=== PATIENT | female | born 1975 | race Caucasian/White ===

== ENCOUNTER 2016-09-26 13:36 | Emergency (ER) | payer BC, MEDICAID ==
[2016-09-26 14:04] VITALS: BP 117/66
--- NOTE | 2016-09-26 14:12 | EDM.PDOC ---
ED HPI Trauma - General Chief Complaint: Upper Extremity Injury/Pain Stated Complaint: R SHOULDER PAIN Time Seen by Provider: 09/26/16 14:07 Source: Reports: Patient History Limitations: Reports: No limitations - History of Present Illness INITIAL COMMENTS - FREE TEXT/NARRATIVE: Pt turned the wrong way and felt something pop and thought the shoulder was dislocated. She was able to get it back into place and today she missed a step and she fell and her shoulder pain is much worse. Occurred When: just prior to arrival Occurred Where: home Method of Injury: fall Severity: moderate Pain/Injury Location: Reports: lower extremity, right Consciousness: Reports: no loss of consciousness Associated Symptoms: Reports: denies other symptoms Allergies/ADRs: Allergies carvedilol [From Coreg] Allergy (Verified 09/26/16 13:45) Rash dexamethasone [From Decadron] Allergy (Verified 09/26/16 13:45) Rash dexamethasone sod phosphate [From Decadron] Allergy (Verified 09/26/16 13:45) Rash latex Allergy (Verified 09/26/16 13:45) Itching metoclopramide HCl [From Reglan] Allergy (Verified 09/26/16 13:45) Other morphine Allergy (Verified 09/26/16 13:45) Itching prednisone Allergy (Verified 09/26/16 13:45) Rash Home Medications: Ambulatory Orders Digoxin 250 mcg PO DAILY 10/02/15 [Confirmed 09/26/16] Eszopiclone [Lunesta] 3 mg PO BEDTIME PRN 10/02/15 [Confirmed 09/26/16] Spironolactone 50 mg PO BID 02/15/16 [Confirmed 09/26/16] lamoTRIgine [Lamotrigine] 300 mg PO DAILY 02/15/16 [Confirmed 09/26/16] Ondansetron [Zofran ODT] 4 mg PO Q6H PRN #12 tab.dis 02/20/16 [Confirmed ] tiZANidine HCl [Zanaflex] 4 mg PO Q6H PRN 03/04/16 [Confirmed 09/26/16] Diltiazem [Dilacor XR] 180 mg PO DAILY 03/25/16 [Confirmed 09/26/16] Ibuprofen [Motrin] 600 mg PO Q6H PRN 03/25/16 [Confirmed 09/26/16] Naproxen Sodium [Aleve] 220 mg PO BID 03/25/16 [Confirmed 09/26/16] oxyCODONE ER [OxyCONTIN] 20 mg PO Q12HR 03/25/16 [Confirmed 09/26/16] oxyCODONE [Oxycodone HCl] 10 mg PO Q4H PRN 03/25/16 [Confirmed 09/26/16] Gabapentin [Neurontin] 600 tab PO TID 03/26/16 [Confirmed 09/26/16] ALPRAZolam [Xanax] 0.5 mg PO TID PRN 09/26/16 [Confirmed 09/26/16] Furosemide [Lasix] 10 mg PO DAILY 09/26/16 [Confirmed 09/26/16] Zaleplon [Sonata] 10 mg PO BEDTIME 09/26/16 [Confirmed 09/26/16] Past Medical History HEENT History: Reports: Allergic rhinitis, Sinusitis Cardiovascular History: Reports: Arrhythmia, Other (see below) Other Cardiovascular History: dialated cardiomyopathy, SVT Respiratory History: Reports: Other (see below) Other Respiratory History: RAD 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 History: Reports: GERD 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, Musculoskeletal History: Reports: Back pain, chronic, Other (see below) Other Musculoskeletal History: Degenerative disc disease, Right SI joint Neurological History: Reports: Concussion, Migraines Psychiatric History: Reports: Anxiety, Bipolar, Depression, Panic attack, Suicide attempt, Suicidal ideation Hematologic History: Reports: Anemia - Infectious Disease History Infectious Disease History: Reports: C-difficile - Past Surgical History Female Surgical History: Reports: Hysterectomy, Tubal ligation Social & Family History - Family History Family Medical History: Noncontributory Musculoskeletal: Reports: Back pain, chronic - Tobacco Use Smoking Status *Q: Never Smoker Second Hand Smoke Exposure: No - Caffeine Use Caffeine Use: Reports: Coffee Other Caffeine Use: every other week at work - Alcohol Use Days Per Week of Alcohol Use: 2 Number of Drinks Per Day: 8 Total Drinks Per Week: 16 - Recreational Drug Use Recreational Drug Use: No Drug Use in Last 12 Months: Yes Recreational Drug Type: Reports: Marijuana/Hashish Recreational Drug Use Frequency: Not Used In Over 6 Months Review of Systems - Review of Systems Review Of Systems: See Below Constitutional: Reports: no symptoms Eyes: Reports: no symptoms Ears: Reports: no symptoms Nose: Reports: no symptoms Mouth/Throat: Reports: no symptoms Respiratory: Reports: No Symptoms Cardiovascular: Reports: no symptoms GI/Abdominal: Reports: No symptoms Genitourinary: Reports: no symptoms Musculoskeletal: Reports: other ( severe pain the rt shoulder. ) Skin: Reports: no symptoms Trauma Exam - Physical Exam Exam: See Below Text/Narrative:: Pt arrived with severe pain in the rt shoulder after a fall today. She is able to use the arm. and has fair range of motion in the shoulder. Exam Limited By: No limitations General Appearance: Reports: alert, anxious, moderate distress Head: Reports: atraumatic Eyes: bilateral eye: EOMI, normal inspection, PERRL Ears: Reports: normal TMs Nose: Reports: normal inspection Throat/Mouth: Reports: Normal inspection Neck: Reports: non-tender Respiratory Exam: Reports: no respiratory distress Extremities: Reports: other ( rt shoulder is tendr anteriorly and in the back of the shoulder. She has tenderness over the deltoid insertion. ) Neurologic: Reports: alert Skin: Reports: Normal color Course - Vital Signs Last Recorded V/S: Last Vital Signs Temp 36.9 C 09/26/16 14:02 Pulse 114 H 09/26/16 14:02 Resp 16 09/26/16 14:02 BP 117/66 09/26/16 14:02 Pulse Ox 96 09/26/16 14:02 - Orders/Labs/Meds Orders: Active Orders 24 hr Category Date Time Status Shoulder Comp Rt [CR] Stat Exams 09/26/16 14:06 Taken HYDROmorphone [Dilaudid] Med 09/26/16 14:41 Once 0.5 mg IM ONETIME ONE Medication Orders Hydromorphone HCl (Dilaudid) 0.5 mg IM ONETIME ONE Stop: 09/26/16 14:42 Meds: Medications Generic Name Dose Route Start Last Admin Trade Name Freq PRN Reason Stop Dose Admin Hydromorphone HCl 0.5 mg 09/26/16 14:41 Dilaudid IM 09/26/16 14:42 ONETIME ONE - Re-Assessments/Exams Free Text/Narrative Re-Assessment/Exam: 09/26/16 14:42 xray arrived with pain in rt shoulder. xray was obtained which did not reveal a fracture. Departure - Departure Time of Disposition: 14:43 Disposition: Home, Self-Care 01 Clinical Impression: Contusion of right shoulder Forms: ED Department Discharge Care Plan Goals: ice to the rt shoulder for the next 72 hours, after that do moist warm heat, do regular range of motion to prevent a frozen shoulder. Use a sling for comfort. - My Orders Last 24 Hours: My Active Orders 09/26/16 14:06 Shoulder Comp Rt [CR] Stat 09/26/16 14:41 HYDROmorphone [Dilaudid] 0.5 mg IM ONETIME ONE - Assessment/Plan Last 24 Hours: My Active Orders 09/26/16 14:06 Shoulder Comp Rt [CR] Stat 09/26/16 14:41 HYDROmorphone [Dilaudid] 0.5 mg IM ONETIME ONE
[2016-09-26] MEDS ORDERED: HYDROmorphone 0.5 MG/0.5 ML Syringe IM ONE (14:41)
--- NOTE | 2016-09-28 09:30 | CR ---
Shoulder Comp Rt HISTORY: Pain COMPARISON: None FINDINGS: No fracture or dislocation. No bony destructive process.
== END 2016-09-26 15:09 | disposition home or self-care (01) ==
LOC: JP.ED 13:36
DX: S40.011A Contusion of right shoulder, initial encounter (principal); K21.9 Gastro-esophageal reflux disease without esophagitis; F41.9 Anxiety disorder, unspecified; F32.9 Major depressive disorder, single episode, unspecified; Z86.2 Personal history of diseases of the blood and blood-forming organs and certain disorders involving the immune mechanism; Z88.5 Allergy status to narcotic agent; Z88.8 Allergy status to other drugs, medicaments and biological substances; Z90.710 Acquired absence of both cervix and uterus; Z98.51 Tubal ligation status; Z91.040 Latex allergy status; W19.XXXA Unspecified fall, initial encounter; Y92.009 Unspecified place in unspecified non-institutional (private) residence as the place of occurrence of the external cause
CPT/HCPCS: 73030; 96372; 99284; J1170

== ENCOUNTER 2016-10-17 17:38 | Emergency (ER) | payer BC, MEDICAID ==
--- NOTE | 2016-10-17 17:58 | EDM.PDOC ---
ED HPI GENERAL MEDICAL PROBLEM - General Chief Complaint: Back Pain or Injury Stated Complaint: SEVERE BACK PAIN Time Seen by Provider: 10/17/16 17:52 Source of Information: Reports: Patient, Family History Limitations: Reports: No Limitations - History of Present Illness INITIAL COMMENTS - FREE TEXT/NARRATIVE: Pt with chronic back pain. With increasing pain over the last 3 days. Has been taking all of her prescribed meds. Feels like pain is due to spasm. Pain is in low back to left leg. Left leg went out and she fell about a week ago. Is waiting for approval for surgery. present for interview. Onset: Gradual Onset Date: 10/14/16 Duration: Constant Location: Reports: Back Quality: Reports: Ache, Sharp Severity: Severe (rates pain a 9) Improves with: Reports: Medication Worsens with: Reports: Movement Associated Symptoms: Reports: Nausea/Vomiting 10 Pain Score (Numeric/FACES): 8 - Related Data Allergies Allergy/AdvReac Type Severity Reaction Status Date / Time carvedilol [From Coreg] Allergy Rash Verified 09/26/16 13:45 dexamethasone [From Decadron] Allergy Rash Verified 09/26/16 13:45 dexamethasone sod phosphate Allergy Rash Verified 09/26/16 13:45 [From Decadron] latex Allergy Itching Verified 09/26/16 13:45 metoclopramide HCl Allergy Other Verified 09/26/16 13:45 [From Reglan] morphine Allergy Itching Verified 09/26/16 13:45 prednisone Allergy Rash Verified 09/26/16 13:45 Home Meds: Home Meds Digoxin 250 mcg PO DAILY 10/02/15 [History] Eszopiclone [Lunesta] 3 mg PO BEDTIME PRN 10/02/15 [History] Spironolactone 50 mg PO BID 02/15/16 [History] lamoTRIgine [Lamotrigine] 300 mg PO DAILY 02/15/16 [History] Ondansetron [Zofran ODT] 4 mg PO Q6H PRN #12 tab.dis 02/20/16 [Rx] tiZANidine HCl [Zanaflex] 4 mg PO Q6H PRN 03/04/16 [History] Diltiazem [Dilacor XR] 180 mg PO DAILY 03/25/16 [History] Ibuprofen [Motrin] 600 mg PO Q6H PRN 03/25/16 [History] Naproxen Sodium [Aleve] 220 mg PO BID 03/25/16 [History] oxyCODONE ER [OxyCONTIN] 20 mg PO Q12HR 03/25/16 [History] oxyCODONE [Oxycodone HCl] 10 mg PO Q4H PRN 03/25/16 [History] Gabapentin [Neurontin] 600 tab PO TID 03/26/16 [History] ALPRAZolam [Xanax] 0.5 mg PO TID PRN 09/26/16 [History] Furosemide [Lasix] 10 mg PO DAILY 09/26/16 [History] Zaleplon [Sonata] 10 mg PO BEDTIME 09/26/16 [History] Past Medical History HEENT History: Reports: Allergic Rhinitis, Sinusitis Cardiovascular History: Reports: Arrhythmia, Other (See Below) Other Cardiovascular History: dialated cardiomyopathy, SVT Respiratory History: Reports: Other (See Below) Other Respiratory History: RAD 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 History: Reports: GERD 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, Musculoskeletal History: Reports: Back Pain, Chronic, Other (See Below) Other Musculoskeletal History: Degenerative disc disease, Right SI joint Neurological History: Reports: Concussion, Migraines Psychiatric History: Reports: Anxiety, Bipolar, Depression, Panic Attack, Suicide Attempt, Suicidal Ideation Hematologic History: Reports: Anemia - Infectious Disease History Infectious Disease History: Reports: C-Difficile - Past Surgical History Female Surgical History: Reports: Hysterectomy, Tubal Ligation Social & Family History - Family History Family Medical History: Noncontributory Musculoskeletal: Reports: Back pain, Chronic - Tobacco Use Smoking Status *Q: Never Smoker Second Hand Smoke Exposure: No - Caffeine Use Caffeine Use: Reports: Coffee Other Caffeine Use: every other week at work - Alcohol Use Days Per Week of Alcohol Use: 2 Number of Drinks Per Day: 8 Total Drinks Per Week: 16 - Recreational Drug Use Recreational Drug Use: No Drug Use in Last 12 Months: Yes Recreational Drug Type: Reports: Marijuana/Hashish Recreational Drug Use Frequency: Not Used In Over 6 Months ED ROS GENERAL - Review of Systems Review Of Systems: See Below Constitutional: Reports: No Symptoms GI/Abdominal: Reports: Nausea Musculoskeletal: Reports: Back Pain Skin: Reports: No Symptoms ED EXAM,LOWER BACK PAIN/INJURY - Physical Exam Exam: See Below Exam Limited By: No Limitations General Appearance: Severe Distress (pt crying and writhing in pain for much of her visit tonight) Respiratory/Chest: No Respiratory Distress, Lungs Clear, Normal Breath Sounds, No Accessory Muscle Use, Chest Non-Tender Cardiovascular: Normal Peripheral Pulses, Regular Rate, Rhythm, No Edema, No Gallop, No JVD, No Murmur, No Rub Back Exam: Normal Inspection, Full Range of Motion, NT Neurological: Alert, Normal Mood/Affect, Normal Dorsiflexion, CN II-XII Intact, Normal Plantar Flexion, Normal Gait, Normal Reflexes, No Motor/Sensory Deficits , Oriented x 3 Psychiatric: Anxious, Tearful Skin Exam: Warm, Dry, Intact, Normal Color, No Rash Course - Vital Signs Last Recorded V/S: Last Vital Signs Temp 99.1 F 10/17/16 18:13 Pulse 111 H 10/17/16 18:49 Resp 18 10/17/16 18:49 BP 120/59 L 10/17/16 18:49 Pulse Ox 99 10/17/16 18:49 - Orders/Labs/Meds Meds: Medications Discontinued Medications Generic Name Dose Route Start Last Admin Trade Name Jelaniq PRN Reason Stop Dose Admin Carisoprodol 350 mg 10/17/16 19:53 Soma PO 10/17/16 19:54 ONETIME ONE Diazepam 5 mg 10/17/16 19:09 10/17/16 19:19 Valium IVPUSH 10/17/16 19:10 5 mg ONETIME ONE Administration Diphenhydramine HCl 25 mg 10/17/16 18:01 10/17/16 18:04 Benadryl IVPUSH 10/17/16 18:02 25 mg ONETIME ONE Administration Hydromorphone HCl 1 mg 10/17/16 17:59 10/17/16 18:05 Dilaudid IVPUSH 10/17/16 18:00 1 mg ONETIME ONE Administration Hydromorphone HCl 1 mg 10/17/16 18:37 10/17/16 18:40 Dilaudid IVPUSH 10/17/16 18:38 1 mg ONETIME ONE Administration Hydroxyzine HCl 50 mg 10/17/16 19:03 10/17/16 19:25 Vistaril IM 10/17/16 19:04 50 mg ONETIME ONE Administration Ketorolac Tromethamine 30 mg 10/17/16 18:44 10/17/16 18:55 Toradol IVPUSH 10/17/16 18:45 30 mg ONETIME ONE Administration Ondansetron HCl 4 mg 10/17/16 18:00 10/17/16 18:05 Zofran IVPUSH 10/17/16 18:01 4 mg ONETIME ONE Administration Departure - Departure Time of Disposition: 19:57 Disposition: Home, Self-Care 01 Condition: good Clinical Impression: Chronic back pain Qualifiers: Back pain location: low back pain Back pain laterality: bilateral Sciatica presence: without sciatica Qualified Code(s): M54.5 - Low back pain; G89.29 - Other chronic pain - Discharge Information Instructions: Back Pain, Adult, [place], Pain Medicine Instructions, Easy- to-Read Referrals: Frank Renee MD [Primary Care Provider] - Forms: ED Department Discharge Additional Instructions: Pt with intractable back pain. Request we call the [facility] to see if we can move up her appointment with her surgeon. We will attempt to reach them for an appointment next week. Multiple medications used to calm her pain tonight in ER. Soma po given prior to discharge per her request. Discussed resuming her pain management plan as previous. Continue supportive measures such as ice, heat, stretching, biofeedback. Followup as needed. Pt and spouse voice understanding of plan of care. - Problem List & Annotations (1) Chronic back pain SNOMED Code(s): 594620825 Code(s): M54.9 - DORSALGIA, UNSPECIFIED; G89.29 - OTHER CHRONIC PAIN Status : Acute Priority: Medium Current Visit: Yes Qualifiers: Back pain location: low back pain Back pain laterality: bilateral Sciatica presence: without sciatica Qualified Code(s): M54.5 - Low back pain; G89.29 - Other chronic pain
[2016-10-17] MEDS ORDERED: HYDROmorphone 1 MG/ML Syringe IVPUSH ONE ×2 (17:59→18:37)
[2016-10-17] MEDS ORDERED: Ondansetron 4 MG/2 ML SDV IVPUSH ONE (18:00)
[2016-10-17] MEDS ORDERED: diphenhydrAMINE 50 MG/ML SDV IVPUSH ONE (18:01)
[2016-10-17] MEDS ORDERED: Ketorolac 30 MG/ML SDV IVPUSH ONE (18:44)
[2016-10-17 18:50] VITALS: BP 120/59
[2016-10-17] MEDS ORDERED: hydrOXYzine HCl 50 MG/ML SDV IM ONE (19:03)
== END 2016-10-17 20:15 | disposition home or self-care (01) ==
LOC: JP.ED 17:38
DX: G89.29 Other chronic pain (principal); M54.5 Low back pain; K21.9 Gastro-esophageal reflux disease without esophagitis; F41.9 Anxiety disorder, unspecified; F32.9 Major depressive disorder, single episode, unspecified; Z90.710 Acquired absence of both cervix and uterus; Z88.8 Allergy status to other drugs, medicaments and biological substances; Z91.040 Latex allergy status; Z88.5 Allergy status to narcotic agent; Z79.899 Other long term (current) drug therapy; Z98.51 Tubal ligation status
CPT/HCPCS: 96372; 96374; 96375; 96376; 99283; 99284; A9270; J1170; J1200; J1885; J2405; J3360; J3410

== ENCOUNTER 2016-10-19 09:55 | Emergency (ER) | payer MEDICAID ==
[2016-10-19 10:09] VITALS: BP 112/68
[2016-10-19] MEDS ORDERED: HYDROmorphone 1 MG/ML Syringe IVPUSH ONE (10:18)
--- NOTE | 2016-10-19 10:25 | EDM.PDOC ---
ED HPI GENERAL MEDICAL PROBLEM - General Chief Complaint: Back Pain or Injury Stated Complaint: BACK PAIN Time Seen by Provider: 10/19/16 10:18 Source of Information: Reports: Patient, Family History Limitations: Reports: No Limitations - History of Present Illness INITIAL COMMENTS - FREE TEXT/NARRATIVE: pt arrived with severe lower back pin which is radiating down both legs. Randee her diskogram she had 2 tears which he was to have surgery for. Onset: Gradual Duration: Getting Worse Location: Reports: Back Quality: Reports: Other (pt is describing muscle spasm. ) Severity: Severe Lower Back Pain Score (Numeric/FACES): 10 - Related Data Allergies Allergy/AdvReac Type Severity Reaction Status Date / Time carvedilol [From Coreg] Allergy Rash Verified 09/26/16 13:45 dexamethasone [From Decadron] Allergy Rash Verified 09/26/16 13:45 dexamethasone sod phosphate Allergy Rash Verified 09/26/16 13:45 [From Decadron] latex Allergy Itching Verified 09/26/16 13:45 metoclopramide HCl Allergy Other Verified 09/26/16 13:45 [From Reglan] morphine Allergy Itching Verified 09/26/16 13:45 prednisone Allergy Rash Verified 09/26/16 13:45 Home Meds: Home Meds Digoxin 250 mcg PO DAILY 10/02/15 [History] Eszopiclone [Lunesta] 3 mg PO BEDTIME PRN 10/02/15 [History] Spironolactone 50 mg PO BID 02/15/16 [History] lamoTRIgine [Lamotrigine] 300 mg PO DAILY 02/15/16 [History] Ondansetron [Zofran ODT] 4 mg PO Q6H PRN #12 tab.dis 02/20/16 [Rx] tiZANidine HCl [Zanaflex] 4 mg PO Q6H PRN 03/04/16 [History] Diltiazem [Dilacor XR] 180 mg PO DAILY 03/25/16 [History] Ibuprofen [Motrin] 600 mg PO Q6H PRN 03/25/16 [History] Naproxen Sodium [Aleve] 220 mg PO BID 03/25/16 [History] oxyCODONE ER [OxyCONTIN] 20 mg PO Q12HR 03/25/16 [History] oxyCODONE [Oxycodone HCl] 10 mg PO Q4H PRN 03/25/16 [History] Gabapentin [Neurontin] 600 tab PO TID 03/26/16 [History] ALPRAZolam [Xanax] 0.5 mg PO TID PRN 09/26/16 [History] Furosemide [Lasix] 10 mg PO DAILY 09/26/16 [History] Zaleplon [Sonata] 10 mg PO BEDTIME 09/26/16 [History] Past Medical History HEENT History: Reports: Allergic Rhinitis, Sinusitis Cardiovascular History: Reports: Arrhythmia, Other (See Below) Other Cardiovascular History: dialated cardiomyopathy, SVT Respiratory History: Reports: Other (See Below) Other Respiratory History: RAD 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 History: Reports: GERD 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, Musculoskeletal History: Reports: Back Pain, Chronic, Other (See Below) Other Musculoskeletal History: Degenerative disc disease, Right SI joint Neurological History: Reports: Concussion, Migraines Psychiatric History: Reports: Anxiety, Bipolar, Depression, Panic Attack, Suicide Attempt, Suicidal Ideation Hematologic History: Reports: Anemia - Infectious Disease History Infectious Disease History: Reports: C-Difficile - Past Surgical History Female Surgical History: Reports: Hysterectomy, Tubal Ligation Social & Family History - Family History Family Medical History: Noncontributory Musculoskeletal: Reports: Back pain, Chronic - Tobacco Use Smoking Status *Q: Unknown Ever Smoked Second Hand Smoke Exposure: No - Caffeine Use Caffeine Use: Reports: Coffee, Soda Other Caffeine Use: every other week at work - Alcohol Use Days Per Week of Alcohol Use: 2 Number of Drinks Per Day: 8 Total Drinks Per Week: 16 - Recreational Drug Use Recreational Drug Use: No Drug Use in Last 12 Months: Yes Recreational Drug Type: Reports: Marijuana/Hashish Recreational Drug Use Frequency: Not Used In Over 6 Months ED ROS GENERAL - Review of Systems Review Of Systems: See Below Constitutional: Reports: No Symptoms HEENT: Reports: No Symptoms Respiratory: Reports: No Symptoms Cardiovascular: Reports: No Symptoms Endocrine: Reports: No Symptoms GI/Abdominal: Reports: No Symptoms : Reports: No Symptoms Musculoskeletal: Reports: Back Pain, Other (pt has severe lower back pain and pain going down both legs. She has not gotten any relief with her usual meds. She got fentyl 200mg in the ambulance with no relief. She has been given dilaudid 1mg iv, with no relief. ) Skin: Reports: No Symptoms Neurological: Reports: No Symptoms Psychiatric: Reports: Agitation, Anxiety, Other ( crying and not able to relax. ) ED EXAM,LOWER BACK PAIN/INJURY - Physical Exam Exam: See Below Text/Narrative:: Pt arrived with severe low back pain and pain going down both legs. Exam Limited By: No Limitations General Appearance: Alert, Severe Distress Ears: Normal External Exam Nose: Normal Inspection Throat/Mouth: Normal Inspection Head: Atraumatic Neck: Normal Inspection Respiratory/Chest: No Respiratory Distress Cardiovascular: Normal Peripheral Pulses GI/Abdominal: Soft, Non-Tender (Female) Exam: Deferred Rectal (Female) Exam: Deferred Back Exam: Other ( Pt has yenderness accross the lower back and she feels she is having pain going down both legs. ) Extremities: Normal Inspection Neurological: Alert Psychiatric: Anxious, Other (pt is very agitated. ) Course - Vital Signs Last Recorded V/S: Last Vital Signs Temp 37.9 C 10/19/16 10:08 Pulse 112 H 10/19/16 10:08 Resp 22 H 10/19/16 10:08 BP 112/68 10/19/16 10:08 Pulse Ox 99 10/19/16 10:08 - Orders/Labs/Meds Meds: Medications Discontinued Medications Generic Name Dose Route Start Last Admin Trade Name Gucci PRN Reason Stop Dose Admin Diazepam 5 mg 10/19/16 10:17 10/19/16 10:27 Valium IVPUSH 10/19/16 10:18 5 mg ONETIME ONE Administration Diazepam 2.5 mg 10/19/16 10:51 10/19/16 10:59 Valium IVPUSH 10/19/16 10:52 2.5 mg ONETIME ONE Administration Hydromorphone HCl 1 mg 10/19/16 10:18 10/19/16 10:23 Dilaudid IVPUSH 10/19/16 10:19 1 mg ONETIME ONE Administration Hydroxyzine HCl 50 mg 10/19/16 11:04 10/19/16 11:11 Vistaril IM 10/19/16 11:05 50 mg ONETIME ONE Administration Ketorolac Tromethamine 30 mg 10/19/16 10:52 10/19/16 10:57 Toradol IVPUSH 10/19/16 10:53 30 mg ONETIME ONE Administration Nalbuphine HCl 10 mg 10/19/16 12:15 10/19/16 12:09 Nubain IM 10/19/16 12:16 10 mg ONETIME ONE Administration - Re-Assessments/Exams Free Text/Narrative Re-Assessment/Exam: 10/19/16 12:15 since arrival pt hs been given 7.5 of valium, dilaudid 1 mg, torodol 30mg, nubain 10mg im. , vistaril 50mg. Departure - Departure Time of Disposition: 12:30 Disposition: Home, Self-Care 01 Condition: fair Clinical Impression: Lumbar back pain - Discharge Information Forms: ED Department Discharge Care Plan Goals: appt with Dr Cirilo Hinojosa at the [facility],1 pm cont same m,eds, valium 5mg at hs to relax muscles.
[2016-10-19] MEDS ORDERED: Ketorolac 30 MG/ML SDV IVPUSH ONE (10:52)
[2016-10-19] MEDS ORDERED: hydrOXYzine HCl 50 MG/ML SDV IM ONE (11:04)
[2016-10-19] MEDS ORDERED: Nalbuphine 20 MG/1 ML Amp IM ONE (11:49)
[2016-10-19] MEDS ORDERED: Nalbuphine 10 MG/1 ML Vial IM ONE (12:15)
== END 2016-10-19 12:42 | disposition home or self-care (01) ==
LOC: JP.ED 09:55
DX: M54.5 Low back pain (principal); K21.9 Gastro-esophageal reflux disease without esophagitis; F32.9 Major depressive disorder, single episode, unspecified; F41.0 Panic disorder [episodic paroxysmal anxiety]; Z79.899 Other long term (current) drug therapy; Z88.5 Allergy status to narcotic agent; Z88.8 Allergy status to other drugs, medicaments and biological substances; Z91.040 Latex allergy status; Z90.710 Acquired absence of both cervix and uterus; Z98.51 Tubal ligation status
CPT/HCPCS: 96374; 96375; 96376; 99283; J1170; J1885; J2300; J3360; J3410; 99284